=== PATIENT | female | born 1950 | race Caucasian/White ===

== ENCOUNTER → 2025-03-04 12:17 | Outpatient (CLI) | payer MEDICARE, OTHER, SELFPAY ==
[2025-03-04 12:54] LABS: Add Manual Diff / Slide Review NO; Hematocrit 38.2 % (36-46); Hemoglobin 12.9 g/dL (12.0-16.0); Lymphocytes Absolute Auto 1000 /uL (1100-4500); Mean Corpuscular HGB Conc 33.8 % (30-36); Mean Corpuscular Hemoglobin 33.4 PG (26-34); Mean Corpuscular Volume 98.9 fL (80-100); Platelet Count 220 X10^3/uL (150-400)
[2025-03-04 13:48] LABS: Alanine Aminotransferase 15 IU/L (<35); Albumin 4.3 g/dL (3.5-5.0); Albumin Globulin Ratio 1.9 (1.0-2.8); Alkaline Phosphatase 66 U/L (38-126); Blood Urea Nitrogen 17 mg/dL (7-17); Calcium 9.4 mg/dL (8.4-10.2); Carbon Dioxide 27 mmol/L (22-32); Chloride 104 mmol/L (98-107); Estimated Glomerular Filt Rate > 60 mL/min (>60); Globulin 2.3 g/dL (1.7-4.1); Glucose 88 mg/dL (70-99); HEMOLYSIS < 15 (0-50); Potassium 4.5 mmol/L (3.4-5.1); Sodium 139 mmol/L (137-145); Total Protein 6.6 g/dL (6.3-8.2)
[2025-03-04 14:06] LABS: Vitamin D 25 Hydroxy (D3) 40.2 ng/mL (30.0-100.0)
[2025-03-04 14:19] LABS: TSH w/ Reflex to FT4 2.52 uIU/mL (0.47-4.68)
== END ==
PROVIDERS: PCP Family Medicine; Referring Provider Family Medicine; Visit Provider Family Medicine
DX: C50.912 Malignant neoplasm of unspecified site of left female breast (principal); Z98.890 Other specified postprocedural states; E55.9 Vitamin D deficiency, unspecified; Z90.89 Acquired absence of other organs
CPT/HCPCS: 36415; 80053; 82306; 84443; 85025